=== PATIENT | male | born 1955 | race Caucasian/White ===

== ENCOUNTER 2025-04-08 12:55 | Inpatient (IN) | payer MEDICARE, MEDICAID ==
[~2025-04-08] VITALS: Ht 170.2 cm; Wt 70.0 kg
--- NOTE | 2025-04-08 14:16 | ED.PDOC ---
General HPI Comments A 69 YEAR OLD FEMALE PRESENTS TO THE ED WITH COMPLAINT OF UTI SYMPTOMS. PATIENT STATES HE HAS BEEN EXPERIENCING HEMATURIA, URINARY FREQUENCY, AND URINARY URGENCY WITH A SMALL URINE OUTPUT FOR THE PAST 1 WEEK. PATIENT DENIES FLANK PAIN, FEVER, CHILLS, SHORTNESS OF BREATH, CHEST PAIN, ABDOMINAL PAIN, NAUSEA, VOMITING, HEADACHE, OR OTHER COMPLAINTS. NO OTHER SYMPTOMS OR MODIFYING FACTORS AT THIS TIME. PATIENT IS ALERT, ORIENTED X 4, AND HAS STEADY GAIT. Chief Complaint: Urinary Time Seen by MD: 13:29 Reviewed notes: Nurses Notes, Medications, Allergies Allergies: Coded Allergies: NO KNOWN ALLERGIES (Unverified , 04/08/25) Information Source: Patient Mode of Arrival: Wheelchair Severity: Moderate Inability to void: None Timing: Days Duration: Since onset, Days Prehospital treatment: None Onset: Spontaneous Symptoms: Frequency, Urgency, Hematuria History of: None Location: None Penile discharge: None Modifying factors: None associated signs and symptoms: Frequency, Urgency, Hematuria Past Medical History PAST MEDICAL HISTORY: CVA, Dementia Surgical History: Denies all surgeries Family History Family History: Reviewed,noncontributory to illness Social History Smoker: Non-Smoker Alcohol: Denies ETOH Use Drugs: Denies Drug Use Lives In: Home Constitutional: denies: chills, diaphoresis, fatigue, fever, malaise, sweats, weakness, others EENTM: denies: blurred vision, double vision, ear bleeding, ear discharge, ear drainage, ear pain, ear ringing, eye pain, eye redness, hearing loss, mouth pain, mouth swelling, nasal discharge, nose bleeding, nose congestion, nose pain, photophobia, tearing, throat pain, throat swelling, voice changes, others Respiratory: denies: cough, hemoptysis, orthopnea, SOB at rest, shortness of breath, SOB with excertion, stridor, wheezing, others Cardiovascular: denies: chest pain, dizzy spells, diaphoresis, Dyspnea on exertion, edema, irregular heart beat, left arm pain, lightheadedness, palpitations, PND, syncope, others Gastrointestinal: denies: abdomen distended, abdominal pain, blood streaked bowels, constipated, diarrhea, dysphagia, difficulty swallowing, hematemesis, melena, nausea, poor appetite, poor fluid intake, rectal bleeding, rectal pain, vomiting, others Genitourinary: reports: frequency, hematuria, urgency; denies: burning, dysuria, flank pain, incontinence, penile discharge, penile sore, pain, testicle pain, testicle swelling, others Neurological: denies: dizziness, fainting, headache, left sided numbness, left sided weakness, numbness, paresthesia, pre-existing deficit, right sided numbness, right sided weakness, seizure, speech problems, tingling, tremors, weakness, others Musculoskeletal: denies: back pain, gout, joint pain, joint swelling, muscle pain, muscle stiffness, neck pain, others Integumetry: denies: bruises, change in color, change in hair/nails, dryness, laceration, lesions, lumps, rash, wounds, others Allergic/Immunocompromised: denies: Difficulty Healing, Frequent Infections, Hives, Itching, others Hematologic/Lymphatic: denies: anemia, blood clots, easy bleeding, easy bruising, swollen glands, others Endocrine: denies: excessive hunger, excessive sweating, excessive thirst, excessive urination, flushing, intolerance to cold, intolerance to heat, unexplained weight gain, unexplained weight loss, others Psychiatric: denies: anxiety, bipolar disorder, depression, hopeless, panic disorder, schizophrenia, sleepless, suicidal, others All Other Systems: Reviewed and Negative Physical Exam General Appearance: No Apparent Distress, Normal HEENT: Normal ENT Inspection, PERRL/EOMI, Pharynx Normal, TMs Normal Neck: Full Range of Motion, Non-Tender, Normal, Normal Inspection Respiratory: Chest Non-Tender, Lungs Clear, No Accessory Muscle Use, No Respiratory Distress, Normal Breath Sounds Cardiovascular: No Edema, No JVD, No Murmur, No Gallop, Normal Peripheral Pulses, Regular Rate/Rhythm Breast Exam: Deferred Gastrointestinal: No Organomegaly, Non Tender, No Pulsatile Mass, Normal Bowel Sounds, Soft Genitalia: Deferred Pelvic: Deferred Rectal: Deferred Extremities: No calf tenderness, Normal capillary refill, Normal inspection, Normal range of motion, Non-tender, No pedal edema, Other (LEFT SIDE WEAKNESS DUE TO OLD CVA ) Musculoskeletal : Apperance: Normal Neurologic: Alert, tree planter II-XII nml as Tested, No Motor Deficits, Normal Affect, Normal Mood, No Sensory Deficits Cerebellar Function: Normal Reflexes: Normal Skin: Dry, Normal Color, Warm Peripheral Pulses: 2+ carotid (R), 2+ carotid (L), 2+ dorsalis pedis (R), 2+ dorsalis pedis (L) Lymphatic: No Adenopathy Was a procedure done? Was a procedure done?: No Differential Diagnosis Kidney stone (Female): N/A Kidney stone (Male): N/A Penile/Scrotal: N/A Urinary Problem (Male): Urinary Retention, Urolithiasis, UTI Urinary Problem (Female): N/A X-Ray, Labs, Meds, VS Vital Signs Date Time Temp Pulse Resp B/P (MAP) Pulse Ox O2 Delivery O2 Flow Rate FiO2 04/08/25 12:58 98.0 88 18 119/72 92 98.0 Lab Test 04/08/25 14:46 04/08/25 14:05 Range/Units White Blood Count 8.6 4.4-10.8 10^3/uL Red Blood Count 4.16 L 4.5-5.90 10^6/uL Hemoglobin 12.7 L 13.5-17.5 g/dL Hematocrit 37.2 L 41.0-53.0 % Mean Corpuscular Volume 89.4 80.0-100.0 fL Mean Corpuscular Hemoglobin 30.6 28.0-32.0 pg Mean Corpuscular Hemoglobin Concent 34.2 32.0-36.0 g/dL Red Cell Distribution Width 12.2 11.8-14.3 % Platelet Count 468 H 140-450 10^3/uL Mean Platelet Volume 6.5 L 6.9-10.8 fL Neutrophils (%) (Auto) 75.2 37.0-80.0 % Lymphocytes (%) (Auto) 13.6 10.0-50.0 % Monocytes (%) (Auto) 8.1 0.0-12.0 % Eosinophils (%) (Auto) 2.7 0.0-7.0 % Basophils (%) (Auto) 0.4 0.0-2.0 % Neutrophils # (Auto) 6.5 1.6-8.6 10 ^3/uL Lymphocytes # (Auto) 1.2 0.4-5.4 10 ^3/uL Monocytes # (Auto) 0.7 0-1.3 10 ^3/uL Eosinophils # (Auto) 0.2 0-0.8 10 ^3/uL Basophils # (Auto) 0 0-0.2 10 ^3/uL Nucleated Red Blood Cells 0.1 % Sodium Level 143 136-145 mmol/L Potassium Level 4.0 3.5-5.1 mmol/L Chloride Level 104 98-107 mmol/L Carbon Dioxide Level 30 20-31 mmol/L Anion Gap 9 5-15 Blood Urea Nitrogen 16 9-23 mg/dL Creatinine 1.05 0.700-1.30 mg/dL Glomerular Filtration Rate Calc 76 >90 mL/min BUN/Creatinine Ratio 15.2 10.0-20.0 Serum Glucose 79 74-106 mg/dL Calcium Level 10.1 8.7-10.4 mg/dL Urine Color Light-yellow Yellow Urine Clarity Clear Clear Urine pH 6.0 5.0-9.0 Urine Specific [place] 1.018 1.001-1.035 Urine Protein Negative Negative Urine Ketones Negative Negative Urine Blood Negative Negative /uL Urine Nitrite Negative Negative Urine Bilirubin Negative Negative Urine Urobilinogen Normal Negative mg/dL Urine Leukocyte Esterase Trace Negative /uL Urine RBC 1 0 - 3 /hpf Urine Microscopic WBC 10 H 0-3 /HPF Urine Squamous Epithelial Cells Few <5 /hpf Urine Bacteria None seen None Seen /hpf Urine Glucose Normal Normal mg/dL Current Medications Medications (Trade) Dose Ordered Sig/Nisha Route Start Time Stop Time Status Last Admin Sodium Chloride 1,000 ml @ 1,000 mls/hr Q1H ONCE IV 04/08/25 15:15 04/08/25 16:14 04/08/25 15:30 ORDERING PHYSICIAN: JOHNATHAN TORRES PROCEDURE(s): ABPL - CT AB PEL WO CON-NO ORAL OR IV REASON: blood in the urine ORDER NUMBER(s): [id number], ACCESSION NUMBER(s): [id number] CT abdomen and pelvis without contrast INDICATION: blood in the urine TECHNIQUE: Serial axial images were performed through the abdomen and pelvis and then reformatted in the sagittal and coronal plane. All CT scans at this medical facility are performed using dose modulation techniques as appropriate to a performed exam including the following: Automated exposure control was utilized; adjustment of the MA and/or KvP according to patient size; and use of iterative reconstruction technique. FINDINGS: Liver and spleen are normal in size without focal mass. Multiple bilateral renal stones. Largest stone in the right kidney is roughly 1-2 mm in the left kidney roughly 5 mm. There is no hydronephrosis. There are multiple bilateral renal cysts with the largest on the left measuring 4.6 and 4.4 cm No masses or enlargement of the adrenal glands or pancreas. No biliary dilatation. No gallstones. No distention of bowel loops to suggest mechanical obstruction of bowel. The appendix is normal in appearance. No free fluid. Within the pelvis, bladder is smooth walled without stones. No abnormal masses or fluid collections. IMPRESSION: 1. Bilateral nonobstructive renal calculi. 2. Bilateral renal cysts larger on the left than the right. Computed Tomographic Radiation Dosimetry Report: Total CTDI vol = 13.11mGy Total DLP = 612.18mGy-cm Low dose protocols were performed. ATED BY: SIMONE ANDRADE MD DICTATED DATE/TIME: 04/08/251448 SIGNED BY: SIMONE ANDRADE MD SIGNED DATE/TIME: 04/08/251448 CC: X-Ray, Labs, Meds, VS Comment EXTERNAL MEDICAL RECORDS REVIEWED: [NONE] INDEPENDENT HISTORIANS: [NONE] SOCIAL DETERMINANTS OF HEALTH: [NONE] LABS ORDERED: CBC, BMP, UA REVIEWED AND INTERPRETED RESULTS: NORMAL IMAGING ORDERED: NONE TREATMENTS ORDERED: NS 1 L IV, FLOMAX 0.8 MG P.O. PROCEDURES PERFORMED: NONE CRITICAL CARE TIME: NONE I HAVE DISCUSSED THE PATIENT WITH THE ATTENDING PHYSICIAN DR. MCKENZIE AND HE AGREES WITH THE PATIENT'S PLAN OF CARE. UPON MY PHYSICAL EXAMINATION, THE PATIENT WAS WELL IN APPEARANCE AND HAD NO SIGNS OF RESPIRATORY DISTRESS AT THIS TIME. A CT SCAN WAS ORDERED FOR THE PATIENT WHICH REVEALED BILATERAL NONOBSTRUCTING RENAL STONES WITH THE LARGEST BEING ON THE LEFT SIDE MEASURING 5 MM. DUE TO THE PATIENT'S AGE AND CT SCAN RESULTS, I HAVE DETERMINED THE PATIENT NEEDS TO BE ADMITTED FOR FURTHER TREATMENT AND EVALUATION. THE ON-CALL HOSPITALIST WILL BE CONTACTED FOR ADMISSION OF THIS PATIENT. Images Reviewed?: Images reviewed and evaluated by me Time of 1ST Reevaluation: 15:37 Reevaluation 1ST: Unchanged Patient Education/Counseling: Diagnosis, Treatment Family Education/Counseling: Diagnosis, Treatment SEPSIS Sepsis Screen Date sepsis recognized/suspect: Apr 08, 2025 Time Sepsis recognized/suspect: 1300 Recent Procedure: No On Antibiotic Therapy: No Respiratory Rate >20: No Heart Rate >90: No Temp<36 C (96.8 F) or >38.3 C: No SBP <90 or MAP <65 mmHG: No New Acute Mental Status Change: No Is the patient on CPAP, BIPAP,: No Physician Orders Ct Ab Pel Wo Con-No Oral Or Iv (04/08/25 14:21) Heplock Iv (04/08/25 ) Sodium Chloride 0.9% (04/08/25 15:15) Vital Signs Date Time Temp Pulse Resp B/P (MAP) Pulse Ox O2 Delivery O2 Flow Rate FiO2 04/08/25 12:58 98.0 88 18 119/72 92 98.0 Laboratory Tests Test 04/08/25 14:46 White Blood Count 8.6 10^3/uL (4.4-10.8) Medications Medications Dose Ordered Sig/Nisha Route Start Time Stop Time Status Last Admin Dose Admin Sodium Chloride 1,000 ml @ 1,000 mls/hr Q1H ONCE IV 04/08/25 15:15 04/08/25 16:14 04/08/25 15:30 Departure 1 Departure Time of Disposition: 15:37 Impression: Primary Impression: Hematuria Qualified Codes: R31.9 - Hematuria, unspecified Additional Impression: Bilateral renal stones Disposition: ADMITTED INPATIENT Condition: Serious Critical Care Note Critical Care Time?: No Stability Stability form required: Yes Unstable for transfer: Requires medication, ED Physician Assesment, Possible rapid decline I personally scribed for JOHNATHAN TORRES ([email or web address]) on 04/08/25 at 14:15. Electronically submitted by Jonny Land ([employer]). I personally scribed for JOHNATHAN TORRES ([email or web address]) on 04/08/25 at 14:56. Electronically submitted by Jonny Land ([employer]). I personally scribed for JOHNATHAN TORRES ([email or web address]) on 04/08/25 at 15:31. Electronically submitted by Jonny Land ([employer]). JOHNATHAN TORRES Apr 08, 2025 14:15
--- NOTE | 2025-04-08 14:51 | DVH ---
CT abdomen and pelvis without contrast INDICATION: blood in the urine TECHNIQUE: Serial axial images were performed through the abdomen and pelvis and then reformatted in the sagittal and coronal plane. All CT scans at this medical facility are performed using dose modulation techniques as appropriate to a performed exam including the following: Automated exposure control was utilized; adjustment of the MA and/or KvP according to patient size; and use of iterative reconstruction technique. FINDINGS: Liver and spleen are normal in size without focal mass. Multiple bilateral renal stones. Largest stone in the right kidney is roughly 1-2 mm in the left kidney roughly 5 mm. There is no hydronephrosis. There are multiple bilateral renal cysts with the largest on the left measuring 4.6 and 4.4 cm No masses or enlargement of the adrenal glands or pancreas. No biliary dilatation. No gallstones. No distention of bowel loops to suggest mechanical obstruction of bowel. The appendix is normal in appearance. No free fluid. Within the pelvis, bladder is smooth walled without stones. No abnormal masses or fluid collections. IMPRESSION: 1. Bilateral nonobstructive renal calculi. 2. Bilateral renal cysts larger on the left than the right. Computed Tomographic Radiation Dosimetry Report: Total CTDI vol = 13.11mGy Total DLP = 612.18mGy-cm Low dose protocols were performed.
[2025-04-08 14:55] LABS: Urine Protein, UAD Negative (Negative)
[2025-04-08 15:09] LABS: Hematocrit 37.2 % (41.0-53.0); Hemoglobin 12.7 g/dL (13.5-17.5); Mean Corpuscular Hemoglobin 30.6 pg (28.0-32.0); Mean Corpuscular Volume 89.4 fL (80.0-100.0); Nucleated Red Blood Cells % 0.1 %
[2025-04-08 15:16] LABS: Chloride 104 mmol/L (98-107); Potassium 4.0 mmol/L (3.5-5.1); Sodium 143 mmol/L (136-145)
[2025-04-08 15:17] LABS: Anion Gap 9 (5-15); Calcium 10.1 mg/dL (8.7-10.4); Carbon Dioxide 30 mmol/L (20-31)
[2025-04-08 15:22] LABS: BUN/Creatinine Ratio 15.2 (10.0-20.0); Blood Urea Nitrogen 16 mg/dL (9-23); Glucose 79 mg/dL (74-106)
[2025-04-08] MEDS: SODIUM CHLORIDE 0.9% 1,000 ML IV ONE (15:30)
[2025-04-08] MEDS: TAMSULOSIN HYDROCHLORIDE 0.4 MG CAP PO ONE (15:35)
[2025-04-08] MEDS ORDERED: LISI30TA8 PO (16:57)
[2025-04-08] MEDS ORDERED: CLOP75TA70 PO (16:58)
[2025-04-08] MEDS ORDERED: ATOR-47 PO (16:58)
[2025-04-08] MEDS ORDERED: ACETAMINOPHEN 325 MG TAB PO PRN (18:30)
[2025-04-08] MEDS ORDERED: ONDANSETRON HCL 4 MG/2 ML VIAL IV PRN (18:30)
[2025-04-08] MEDS ORDERED: MORPHINE SULFATE INJ 2 MG/ml SYRG IV PRN (18:30)
[2025-04-08] MEDS ORDERED: NITROGLYCERIN 0.4 MG SL TAB SL PRN (18:30)
[2025-04-08] MEDS: SODIUM CHLORIDE 0.9% 1,000 ML IV SCH (18:30)
--- NOTE | 2025-04-08 18:56 | DVHHPRES ---
History of Present Illness Resident Creating Document: CHERYYORDYNeftalyCYNDEE RESIDENT History of Present Illness Mr. 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 According to his caregiver, the patient has been experiencing blood clots in his urine and blood coming out with urination when using the toilet. The caregiver has noticed the patient soiling his pants when going to the restroom to urinate. The patient appears to have associated back pain, as evidenced by bending down and walking in a hunched position when trying to ambulate. This is the first time these urinary symptoms have occurred. The patient denies flu-like symptoms, difficulty breathing, shortness of breath, leg swelling, diabetes, kidney issues, heart attacks, heart failure, or known prostate problems. Medical History - Dementia following stroke in 2016 - Two [id number] strokes in 2016 with resulting left-sided paralysis - Asthma - Hypertension Surgical history- denies Family history- nonsignificant Social history- lives at home. Denies smoking, alcohol and other drug abuse Home medications- clopidogrel, Lipitor, lisinopril Allergies- No known allergies Review of Systems General: Negative for flu-like symptoms. :Right lank pain Cardiovascular: Negative for leg swelling. Respiratory: Negative for difficulty breathing, shortness of breath. Musculoskeletal: Positive for back pain. Review of Systems Allergies: Coded Allergies: NO KNOWN ALLERGIES (Unverified , 04/08/25) Medications Current Medications Medications Dose Ordered Sig/Nisha Route Start Time Stop Time Status Last Admin Dose Admin Sodium Chloride 10 ml Q8HR IV 04/08/25 22:00 Sodium Chloride 1,000 ml @ 60 mls/hr [id number] IV 04/08/25 18:30 Ondansetron HCl 4 mg Q4HP PRN IV 04/08/25 18:30 Acetaminophen 650 mg Q6HP PRN PO 04/08/25 18:30 Nitroglycerin 0.4 mg Q5MINP PRN SL 04/08/25 18:30 Morphine Sulfate 2 mg Q30M PRN IV 04/08/25 18:30 Ceftriaxone Sodium 50 ml @ 100 mls/hr DAILY@09 IV 04/09/25 09:00 Clopidogrel Bisulfate 75 mg DAILY PO 04/09/25 10:00 Atorvastatin Calcium 80 mg HS PO 04/08/25 22:00 Lisinopril 30 mg DAILY PO 04/09/25 10:00 Exam Vital Signs Vital Signs Date Time Temp Pulse Resp B/P (MAP) Pulse Ox O2 Delivery O2 Flow Rate FiO2 04/08/25 16:58 98.6 91 17 102/66 (78) 96 98.6 04/08/25 15:41 Room Air Exam Pt is lying on bed General Appearance: Alert, Oriented X3, Cooperative, Not in acute distress HEENT: Atraumatic, Mucous membranes moist/pink Respiratory: Clear to auscultation, Normal air movement, No added sounds Cardiovascular: Regular rate, Normal S1, Normal S2, No murmurs Abdominal: Active bowel sounds, Soft, no distention, right flank tenderness Extremities: No edema, Normal pulses, No tenderness/swelling Skin: No Significant rash, except past surgical scars Neuro: decreased strength on the left side of the body due to the stool CVA Psych/Mental Status: Mental status NL, Mood NL 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 as archery equipment hay sorter during examination Labs/Xrays Labs Test 04/08/25 14:46 04/08/25 14:05 Range/Units White Blood Count 8.6 4.4-10.8 10^3/uL Red Blood Count 4.16 L 4.5-5.90 10^6/uL Hemoglobin 12.7 L 13.5-17.5 g/dL Hematocrit 37.2 L 41.0-53.0 % Mean Corpuscular Volume 89.4 80.0-100.0 fL Mean Corpuscular Hemoglobin 30.6 28.0-32.0 pg Mean Corpuscular Hemoglobin Concent 34.2 32.0-36.0 g/dL Red Cell Distribution Width 12.2 11.8-14.3 % Platelet Count 468 H 140-450 10^3/uL Mean Platelet Volume 6.5 L 6.9-10.8 fL Neutrophils (%) (Auto) 75.2 37.0-80.0 % Lymphocytes (%) (Auto) 13.6 10.0-50.0 % Monocytes (%) (Auto) 8.1 0.0-12.0 % Eosinophils (%) (Auto) 2.7 0.0-7.0 % Basophils (%) (Auto) 0.4 0.0-2.0 % Neutrophils # (Auto) 6.5 1.6-8.6 10 ^3/uL Lymphocytes # (Auto) 1.2 0.4-5.4 10 ^3/uL Monocytes # (Auto) 0.7 0-1.3 10 ^3/uL Eosinophils # (Auto) 0.2 0-0.8 10 ^3/uL Basophils # (Auto) 0 0-0.2 10 ^3/uL Nucleated Red Blood Cells 0.1 % Sodium Level 143 136-145 mmol/L Potassium Level 4.0 3.5-5.1 mmol/L Chloride Level 104 98-107 mmol/L Carbon Dioxide Level 30 20-31 mmol/L Anion Gap 9 5-15 Blood Urea Nitrogen 16 9-23 mg/dL Creatinine 1.05 0.700-1.30 mg/dL Glomerular Filtration Rate Calc 76 >90 mL/min BUN/Creatinine Ratio 15.2 10.0-20.0 Serum Glucose 79 74-106 mg/dL Calcium Level 10.1 8.7-10.4 mg/dL Urine Color Light-yellow Yellow Urine Clarity Clear Clear Urine pH 6.0 5.0-9.0 Urine Specific [employer] 1.018 1.001-1.035 Urine Protein Negative Negative Urine Ketones Negative Negative Urine Blood Negative Negative /uL Urine Nitrite Negative Negative Urine Bilirubin Negative Negative Urine Urobilinogen Normal Negative mg/dL Urine Leukocyte Esterase Trace Negative /uL Urine RBC 1 0 - 3 /hpf Urine Microscopic WBC 10 H 0-3 /HPF Urine Squamous Epithelial Cells Few <5 /hpf Urine Bacteria None seen None Seen /hpf Urine Glucose Normal Normal mg/dL SEPSIS Sepsis Screen Date sepsis recognized/suspect: Apr 08, 2025 Time Sepsis recognized/suspect: 1657 Recent Procedure: No On Antibiotic Therapy: No Respiratory Rate >20: No Heart Rate >90: Yes Temp<36 C (96.8 F) or >38.3 C: No SBP <90 or MAP <65 mmHG: No New Acute Mental Status Change: No Is the patient on CPAP, BIPAP,: No Physician Orders Ct Ab Pel Wo Con-No Oral Or Iv (04/08/25 14:21) Heplock Iv (04/08/25 ) Admit (04/08/25 18:30) Allergies (04/08/25 18:30) Code Status (04/08/25 18:30) Sodium Chloride Lock (Saline Lock Ns) (04/08/25 22:00) Sodium Chloride 0.9% (04/08/25 18:30) Ondansetron Hcl (Zofran) (04/08/25 18:30) Complete Blood Count (04/09/25 04:00) Comprehensive Metabolic Panel (04/09/25 04:00) Cardiac Diet-2gna,Lofat,Lochol (04/08/25 Dinner) Condition: Fair (04/08/25 18:30) Acetaminophen Tablet (Tylenol Tablet) (04/08/25 18:30) Sequential Compression Device (04/08/25 ) Nitroglycerin Sublingual (Ntrostat Subli (04/08/25 18:30) Morphine Sulfate Injection (04/08/25 18:30) Oxygen By Nasal Cannula (04/08/25 18:30) Stat Ekg For Chest Pain (04/08/25 18:30) Notify Md Of Changes From Base (04/08/25 18:30) Establishment Guide For 24 Hours (04/08/25 18:30) Emergency Dysrhythmia Protocol (04/08/25 18:30) Rhythm Strips Once Every Shift (04/08/25 18:30) Urine Bacterial Culture (04/08/25 18:30) B-Type Natriuretic Peptide (04/08/25 18:30) Magnesium (04/08/25 18:30) PTPTT (04/08/25 18:30) Ceftriaxone 1gm/50ml (Rocephin) (04/08/25 18:30) Ceftriaxone 1gm/50ml (Rocephin) (04/09/25 09:00) Clopidogrel Bisulfate (Plavix) (04/09/25 10:00) Lisinopril Tablet (Zestril Tablet) (04/09/25 10:00) Atorvastatin (Lipitor) (04/08/25 22:00) Vital Signs Date Time Temp Pulse Resp B/P (MAP) Pulse Ox O2 Delivery O2 Flow Rate FiO2 04/08/25 16:58 98.6 91 17 102/66 (78) 96 98.6 04/08/25 15:41 90 19 96 Room Air 04/08/25 15:41 98.9 90 17 136/83 (100) 96 98.9 04/08/25 12:58 98.0 88 18 119/72 92 98.0 Laboratory Tests Test 04/08/25 14:46 White Blood Count 8.6 10^3/uL (4.4-10.8) Medications Medications Dose Ordered Sig/Nisha Route Start Time Stop Time Status Last Admin Dose Admin Sodium Chloride 1,000 ml @ 1,000 mls/hr Q1H ONCE IV 04/08/25 15:15 04/08/25 16:14 DC 04/08/25 15:30 1,000 MLS/HR Tamsulosin HCl 0.8 mg ONCE ONCE PO 04/08/25 15:15 04/08/25 15:16 DC 04/08/25 15:35 0.8 MG Assessment/Plan Assessment/Plan Mr. Morales is an elderly male with a history of stroke with left-sided paralysis, dementia, and asthma presenting with 2 weeks of urinary symptoms Possible Acute complicated UTI Hematuria likely due to below Bilateral renal calculi. Plan: - Start Rocephin - urine cultures - CT abdominal pelvis showed b/l nonobstructive renal calculi and renal cysts - supportive management - IV fluids - PSA - Tamsulosin HX of CVA Vascular dementia HTN - resumed Lipitor and clopidogrel - delirium precautions Hx of Asthma - consider med-nebs if needed GI PPX: Protonix VTE ppx: Not indicated due to hematuria Diet: cardiac Goals of care addressed with the patient for more than 27 minutes: Full code status Case discussed with Dr. Hanson, patient and nurse Plan discussed with: Patient, Spouse, Other (rn) My Orders Orders - RAHEL GOTTLIEB RESIDENT Procedure Category Date Status Time Admit ADMIT 04/08/25 Transmitted 18:30 Allergies ANNA 04/08/25 In Process 18:30 Code Status CODE 04/08/25 Transmitted 18:30 Sodium Chloride Lock PHA 04/08/25 In Process (Saline Lock Ns) 22:00 Sodium Chloride 0.9% PHA 04/08/25 In Process 18:30 Ondansetron Hcl PHA 04/08/25 In Process (Zofran) 18:30 Complete Blood Count LAB 04/09/25 Verified 04:00 Comprehensive LAB 04/09/25 Verified Metabolic Panel 04:00 Cardiac DIET 04/08/25 Transmitted Diet-2gna,Lofat,Lochol Dinner Condition: Fair ANNA 04/08/25 In Process 18:30 Acetaminophen Tablet PHA 04/08/25 In Process (Tylenol Tablet) 18:30 Sequential ANNA 04/08/25 In Process Compression Device Nitroglycerin PHA 04/08/25 In Process Sublingual (Ntrostat 18:30 Morphine Sulfate PHA 04/08/25 In Process Injection 18:30 Oxygen By Nasal RT 04/08/25 Transmitted Cannula 18:30 Stat Ekg For Chest ANNA 04/08/25 In Process Pain 18:30 Notify Of Changes ANNA 04/08/25 In Process From Base 18:30 Establishment Guide For ANNA 04/08/25 In Process 24 Hours 18:30 Emergency Dysrhythmia ANNA 04/08/25 In Process Protocol 18:30 Rhythm Strips Once ANNA 04/08/25 In Process Every Shift 18:30 Urine Bacterial [place] 04/08/25 In Process Culture 18:30 B-Type Natriuretic LAB 04/08/25 In Process Peptide 18:30 Magnesium LAB 04/08/25 In Process 18:30 PTPTT LAB 04/08/25 In Process 18:30 Ceftriaxone 1gm/50ml PHA 04/08/25 In Process (Rocephin) 18:30 Ceftriaxone 1gm/50ml PHA 04/09/25 In Process (Rocephin) 09:00 Clopidogrel Bisulfate PHA 04/09/25 In Process (Plavix) 10:00 Lisinopril Tablet PHA 04/09/25 In Process (Zestril Tablet) 10:00 Atorvastatin (Lipitor) PHA 04/08/25 In Process 22:00 Visit Coding STANDARD RES Billing Provider: DENY HANSON MD Date of Service if different f: Apr 08, 2025 Common Visit Codes: 26877-ZTKJSXV INP/OBS CARE (HIGH) Secondary Visit Codes: [id number]-[id number] CARE PLAN 30 MINUTES RAHEL GOTTLIEB RESIDENT Apr 08, 2025 18:56
[2025-04-08 19:16] LABS: INR 0.99 (0.9-1.15); Partial Thromboplastin Time 28.5 SEC (24.5-34.5); Prothrombin Time 10.5 sec (9.3-11.8)
[2025-04-08 19:42] VITALS: BP 138/69; PULSE 78; PULSE 95; RESP 18; TEMP 98.5; O2SAT 98
[2025-04-08] MEDS: ATORVASTATIN 20 MG TAB PO SCH (21:06)
[2025-04-08] MEDS: SODIUM CHLOR 0.9% PF (SALINE LOCK) 10ML VIAL/SYR IV SCH (21:06)
[2025-04-08 21:19] VITALS: BP 149/73; PULSE 96; RESP 18; TEMP 98.5; O2SAT 84
[2025-04-09] VITALS (9 sets, daily range): BP systolic 124–170; BP diastolic 58–96; PULSE 72–90; RESP 16–18; TEMP 97.7–98.9; O2SAT 95–97
[2025-04-09 03:27] LABS: Hematocrit 30.1 % (41.0-53.0); Hemoglobin 10.2 g/dL (13.5-17.5); Mean Corpuscular Hemoglobin 30.0 pg (28.0-32.0); Mean Corpuscular Volume 88.8 fL (80.0-100.0); Nucleated Red Blood Cells % 0.0 %
[2025-04-09 03:44] LABS: Alanine Aminotransferase 16 U/L (7-40); Albumin 3.9 g/dL (3.2-4.8); Alkaline Phosphatase 73 U/L (46-116); Anion Gap 8 (5-15); BUN/Creatinine Ratio 15.2 (10.0-20.0); Blood Urea Nitrogen 15 mg/dL (9-23); Calcium 9.2 mg/dL (8.7-10.4); Carbon Dioxide 27 mmol/L (20-31); Chloride 107 mmol/L (98-107); Glucose 96 mg/dL (74-106); Potassium 3.9 mmol/L (3.5-5.1); Sodium 142 mmol/L (136-145); Total Protein 7.0 g/dL (5.7-8.2)
[2025-04-09 03:45] LABS: Bilirubin, Total 0.5 mg/dL (0.2-1.0)
[2025-04-09] MEDS: LISINOPRIL 20 MG TAB PO SCH (09:39)
[2025-04-09] MEDS: CLOPIDOGREL BISULFATE 75 MG TAB PO SCH (09:39)
--- NOTE | 2025-04-09 14:49 | DVHPN2 ---
Reviewed: H&P Changes from previous H/P or p: No Changes General: Per HPI Objective Vitals Vital Signs Date Time Temp Pulse Resp B/P (MAP) Pulse Ox O2 Delivery O2 Flow Rate FiO2 04/09/25 13:00 98.0 77 16 170/96 (120) 95 98.0 04/09/25 08:00 Room Air* 0 21 Intake/Output Intake and Output 04/09/25 07:00 Intake Total 450 ml Balance 450 ml Intake Oral 400 ml IV Total 50 ml # Voids 1 Exam General Appearance: Alert, Oriented X3, Cooperative, Not in acute distress HEENT: Atraumatic, Mucous membranes moist/pink Respiratory: Clear to auscultation, Normal air movement, No added sounds Cardiovascular: Regular rate, Normal S1, Normal S2, No murmurs Abdominal: Active bowel sounds, Soft, no distention, right flank tenderness Extremities: No edema, Normal pulses, No tenderness/swelling Skin: No Significant rash, except past surgical scars Neuro: decreased strength on the left side of the body due to the stool CVA Psych/Mental Status: Mental status NL, Mood NL 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 baseball coach during examination Medications Current Medications Medications Dose Ordered Sig/Nisha Route Start Time Stop Time Status Last Admin Dose Admin Sodium Chloride 10 ml Q8HR IV 04/08/25 22:00 04/09/25 06:00 10 ML Sodium Chloride 1,000 ml @ 60 mls/hr [id number] IV 04/08/25 18:30 04/08/25 18:30 60 MLS/HR Ondansetron HCl 4 mg Q4HP PRN IV 04/08/25 18:30 Acetaminophen 650 mg Q6HP PRN PO 04/08/25 18:30 Ceftriaxone Sodium 50 ml @ 100 mls/hr DAILY@09 IV 04/09/25 09:00 04/09/25 09:00 100 MLS/HR Clopidogrel Bisulfate 75 mg DAILY PO 04/09/25 10:00 04/09/25 09:39 75 MG Atorvastatin Calcium 80 mg HS PO 04/08/25 22:00 04/08/25 21:06 80 MG Lisinopril 30 mg DAILY PO 04/09/25 10:00 04/09/25 09:39 30 MG Tamsulosin HCl 0.4 mg QPM PO 04/09/25 18:00 Laboratory Results Laboratory Tests 04/09/25 02:55 Chemistry Test 04/09/25 02:55 Albumin 3.9 g/dL (3.2-4.8) Calcium Level 9.2 mg/dL (8.7-10.4) Total Protein 7.0 g/dL (5.7-8.2) LFT Test 04/09/25 02:55 Alanine Aminotransferase (ALT) 16 U/L (7-40) Alkaline Phosphatase 73 U/L (46-116) Aspartate Amino Transferase (AST) 23 U/L (13-40) Total Bilirubin 0.5 mg/dL (0.2-1.0) Urinalysis Test 04/08/25 14:05 Urine Color Light-yellow (Yellow) Urine Clarity Clear (Clear) Urine pH 6.0 (5.0-9.0) Urine Specific [place] 1.018 (1.001-1.035) Urine Protein Negative (Negative) Urine Ketones Negative (Negative) Urine Blood Negative /uL (Negative) Urine Nitrite Negative (Negative) Urine Bilirubin Negative (Negative) Urine Urobilinogen Normal mg/dL (Negative) Urine Leukocyte Esterase Trace /uL (Negative) Urine RBC 1 /hpf (0 - 3) Urine Microscopic WBC 10 /HPF (0-3) H Urine Squamous Epithelial Cells Few /hpf (<5) Urine Bacteria None seen /hpf (None Seen) Urine Glucose Normal mg/dL (Normal) Microbiology Microbiology Date/Time Source Procedure Growth Status 04/08/25 14:05 Voided Urine Urine Culture - Preliminary No growth Resulted Labs and/or images reviewed: Labs reviewed by me, Image(s) reviewed by me Assessment/Plan Assessment/Plan Mr. 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 According to his caregiver, the patient has been experiencing blood clots in his urine and blood coming out with urination when using the toilet. The caregiver has noticed the patient soiling his pants when going to the restroom to urinate. The patient appears to have associated back pain, as evidenced by bending down and walking in a hunched position when trying to ambulate. This is the first time these urinary symptoms have occurred. The patient denies flu-like symptoms, difficulty breathing, shortness of breath, leg swelling, diabetes, kidney issues, heart attacks, heart failure, or known prostate problems. 04/09: Patient vascular dementia, swallow himself. Here with UTI. Unclear living situation. Question for hematuria, may need to get Urology consult. We will follow up. For now continuing IV antibiotics for urine culture. Mr. Morales is an elderly male with a history of stroke with left-sided paralysis, dementia, and asthma presenting with 2 weeks of urinary symptoms Possible Acute complicated UTI Hematuria likely due to below Bilateral renal calculi. HX of CVA Vascular dementia HTN Hx of Asthma - Start Rocephin - urine cultures - CT abdominal pelvis showed b/l nonobstructive renal calculi and renal cysts - supportive management - IV fluids - PSA - Tamsulosin - resumed Lipitor and clopidogrel - delirium precautions - consider med-nebs if needed GI PPX: Protonix VTE ppx: Not indicated due to hematuria Diet: cardiac Med surge Full code Plan discussed with: Patient Date of Service: Apr 09, 2025 Billing Provider: GILL PIMENTEL MD Common Visit Codes: [id number] INP/OBS CARE(HIGH) GILL PIMENTEL MD Apr 09, 2025 14:48
[2025-04-09] MEDS: TAMSULOSIN HYDROCHLORIDE 0.4 MG CAP PO SCH (18:37)
[2025-04-10] VITALS (7 sets, daily range): BP systolic 134–162; BP diastolic 84–98; PULSE 66–78; RESP 17–18; TEMP 97.8–98.6; O2SAT 96–97
[2025-04-10 07:17] LABS: Hematocrit 32.4 % (41.0-53.0); Hemoglobin 11.2 g/dL (13.5-17.5); Mean Corpuscular Hemoglobin 30.7 pg (28.0-32.0); Mean Corpuscular Volume 89.0 fL (80.0-100.0); Nucleated Red Blood Cells % 0.0 %
[2025-04-10 07:30] LABS: Alanine Aminotransferase 32 U/L (7-40); Albumin 3.9 g/dL (3.2-4.8); Alkaline Phosphatase 80 U/L (46-116); Anion Gap 10 (5-15); BUN/Creatinine Ratio 17.3 (10.0-20.0); Bilirubin, Total 0.4 mg/dL (0.2-1.0); Blood Urea Nitrogen 17 mg/dL (9-23); Calcium 9.5 mg/dL (8.7-10.4); Carbon Dioxide 27 mmol/L (20-31); Chloride 105 mmol/L (98-107); Glucose 84 mg/dL (74-106); Potassium 4.1 mmol/L (3.5-5.1); Sodium 142 mmol/L (136-145); Total Protein 6.7 g/dL (5.7-8.2)
[2025-04-10 09:07] LABS: Prostate Specific Antigen 30.9 ng/mL (0.0-4.0)
--- NOTE | 2025-04-10 12:16 | DVHPN2 ---
Reviewed: H&P Changes from previous H/P or p: No Changes General: Per HPI Objective Vitals Vital Signs Date Time Temp Pulse Resp B/P (MAP) Pulse Ox O2 Delivery O2 Flow Rate FiO2 04/10/25 09:58 141/71 04/10/25 05:00 98.0 75 18 97 98.0 04/09/25 20:00 Room Air* 0 21 Intake/Output Intake and Output 04/10/25 07:00 Intake Total 800 ml Balance 800 ml Intake Oral 750 ml IV Total 50 ml # Voids 6 Exam General Appearance: Alert, Oriented X3, Cooperative, Not in acute distress HEENT: Atraumatic, Mucous membranes moist/pink Respiratory: Clear to auscultation, Normal air movement, No added sounds Cardiovascular: Regular rate, Normal S1, Normal S2, No murmurs Abdominal: Active bowel sounds, Soft, no distention, right flank tenderness Extremities: No edema, Normal pulses, No tenderness/swelling Skin: No Significant rash, except past surgical scars Neuro: decreased strength on the left side of the body due to the stool CVA Psych/Mental Status: Mental status NL, Mood NL 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 as caster operator during examination Medications Current Medications Medications Dose Ordered Sig/Nisha Route Start Time Stop Time Status Last Admin Dose Admin Sodium Chloride 10 ml Q8HR IV 04/08/25 22:00 04/10/25 05:41 10 ML Sodium Chloride 1,000 ml @ 60 mls/hr [id number] IV 04/08/25 18:30 04/10/25 03:54 60 MLS/HR Ondansetron HCl 4 mg Q4HP PRN IV 04/08/25 18:30 Acetaminophen 650 mg Q6HP PRN PO 04/08/25 18:30 Ceftriaxone Sodium 50 ml @ 100 mls/hr DAILY@09 IV 04/09/25 09:00 04/10/25 09:00 100 MLS/HR Clopidogrel Bisulfate 75 mg DAILY PO 04/09/25 10:00 04/10/25 09:47 75 MG Atorvastatin Calcium 80 mg HS PO 04/08/25 22:00 04/09/25 21:04 80 MG Lisinopril 30 mg DAILY PO 04/09/25 10:00 04/10/25 09:58 30 MG Tamsulosin HCl 0.4 mg QPM PO 04/09/25 18:00 04/09/25 18:37 0.4 MG Laboratory Results Laboratory Tests 04/10/25 06:30 Chemistry Test 04/10/25 06:30 Albumin 3.9 g/dL (3.2-4.8) Calcium Level 9.5 mg/dL (8.7-10.4) Total Protein 6.7 g/dL (5.7-8.2) LFT Test 04/10/25 06:30 Alanine Aminotransferase (ALT) 32 U/L (7-40) Alkaline Phosphatase 80 U/L (46-116) Aspartate Amino Transferase (AST) 38 U/L (13-40) Total Bilirubin 0.4 mg/dL (0.2-1.0) Urinalysis Test 04/08/25 14:05 Urine Color Light-yellow (Yellow) Urine Clarity Clear (Clear) Urine pH 6.0 (5.0-9.0) Urine Specific [place] 1.018 (1.001-1.035) Urine Protein Negative (Negative) Urine Ketones Negative (Negative) Urine Blood Negative /uL (Negative) Urine Nitrite Negative (Negative) Urine Bilirubin Negative (Negative) Urine Urobilinogen Normal mg/dL (Negative) Urine Leukocyte Esterase Trace /uL (Negative) Urine RBC 1 /hpf (0 - 3) Urine Microscopic WBC 10 /HPF (0-3) H Urine Squamous Epithelial Cells Few /hpf (<5) Urine Bacteria None seen /hpf (None Seen) Urine Glucose Normal mg/dL (Normal) Microbiology Microbiology Date/Time Source Procedure Growth Status 04/08/25 14:05 Voided Urine Urine Culture - Preliminary Resulted Labs and/or images reviewed: Labs reviewed by me, Image(s) reviewed by me Assessment/Plan Assessment/Plan Mr. 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 According to his caregiver, the patient has been experiencing blood clots in his urine and blood coming out with urination when using the toilet. The caregiver has noticed the patient soiling his pants when going to the restroom to urinate. The patient appears to have associated back pain, as evidenced by bending down and walking in a hunched position when trying to ambulate. This is the first time these urinary symptoms have occurred. The patient denies flu-like symptoms, difficulty breathing, shortness of breath, leg swelling, diabetes, kidney issues, heart attacks, heart failure, or known prostate problems. 04/09: Patient vascular dementia, swallow himself. Here with UTI. Unclear living situation. Question for hematuria, may need to get Urology consult. We will follow up. For now continuing IV antibiotics for urine culture. 04/10: Doing good, at his baseline A&O x1. Likely vascular dementia. One more day of IV antibiotic and need help from social to figure out disposition at discharge. Mr. Morales is an elderly male with a history of stroke with left-sided paralysis, dementia, and asthma presenting with 2 weeks of urinary symptoms Possible Acute complicated UTI Hematuria likely due to below Bilateral renal calculi. HX of CVA Vascular dementia HTN Hx of Asthma - Start Rocephin - urine cultures - CT abdominal pelvis showed b/l nonobstructive renal calculi and renal cysts - supportive management - IV fluids - PSA - Tamsulosin - resumed Lipitor and clopidogrel - delirium precautions - consider med-nebs if needed GI PPX: Protonix VTE ppx: Not indicated due to hematuria Diet: cardiac Med surge Full code Plan discussed with: Patient Date of Service: Apr 10, 2025 Billing Provider: GILL PIMENTEL MD Common Visit Codes: [id number] INP/OBS CARE(HIGH) GILL PIMENTEL MD Apr 10, 2025 12:16
[2025-04-11 01:00] VITALS: BP 142/88; PULSE 82; RESP 17; TEMP 97.5; O2SAT 97
[2025-04-11 05:00] VITALS: BP 132/74; PULSE 68; RESP 17; TEMP 98.1; O2SAT 97
[2025-04-11 09:00] VITALS: BP 125/80; PULSE 81; RESP 19; TEMP 97.8; O2SAT 95
--- NOTE | 2025-04-11 12:42 | DVHDS2 ---
Discharge Summary Date of Admission Apr 08, 2025 at 18:30 Date of Discharge: Apr 11, 2025 Labs/Diagnostic Data: Laboratory Results Test 04/10/25 06:30 04/08/25 19:09 04/08/25 14:46 04/08/25 14:05 White Blood Count 7.7 10^3/uL (4.4-10.8) Red Blood Count 3.64 10^6/uL (4.5-5.90) Hemoglobin 11.2 g/dL (13.5-17.5) Hematocrit 32.4 % (41.0-53.0) Mean Corpuscular Volume 89.0 fL (80.0-100.0) Mean Corpuscular Hemoglobin 30.7 pg (28.0-32.0) Mean Corpuscular Hemoglobin Concent 34.5 g/dL (32.0-36.0) Red Cell Distribution Width 12.2 % (11.8-14.3) Platelet Count 391 10^3/uL (140-450) Mean Platelet Volume 6.3 fL (6.9-10.8) Neutrophils (%) (Auto) 70.6 % (37.0-80.0) Lymphocytes (%) (Auto) 16.6 % (10.0-50.0) Monocytes (%) (Auto) 10.1 % (0.0-12.0) Eosinophils (%) (Auto) 2.2 % (0.0-7.0) Basophils (%) (Auto) 0.5 % (0.0-2.0) Neutrophils # (Auto) 5.4 10 ^3/uL (1.6-8.6) Lymphocytes # (Auto) 1.3 10 ^3/uL (0.4-5.4) Monocytes # (Auto) 0.8 10 ^3/uL (0-1.3) Eosinophils # (Auto) 0.2 10 ^3/uL (0-0.8) Basophils # (Auto) 0 10 ^3/uL (0-0.2) Nucleated Red Blood Cells 0.0 % Sodium Level 142 mmol/L (136-145) Potassium Level 4.1 mmol/L (3.5-5.1) Chloride Level 105 mmol/L (98-107) Carbon Dioxide Level 27 mmol/L (20-31) Anion Gap 10 (5-15) Blood Urea Nitrogen 17 mg/dL (9-23) Creatinine 0.98 mg/dL (0.700-1.30) Glomerular Filtration Rate Calc 83 mL/min (>90) BUN/Creatinine Ratio 17.3 (10.0-20.0) Serum Glucose 84 mg/dL (74-106) Calcium Level 9.5 mg/dL (8.7-10.4) Total Bilirubin 0.4 mg/dL (0.2-1.0) Aspartate Amino Transferase (AST) 38 U/L (13-40) Alanine Aminotransferase (ALT) 32 U/L (7-40) Alkaline Phosphatase 80 U/L (46-116) Total Protein 6.7 g/dL (5.7-8.2) Albumin 3.9 g/dL (3.2-4.8) Free Prostate Specific Antigen 2.54 ng/mL (N/A) Percent Free Prostate Specific Ag 8.2 % (.) Prostate Specific Antigen Total 30.9 ng/mL (0.0-4.0) Prothrombin Time 10.5 sec (9.3-11.8) Prothrombin Time INR 0.99 (0.9-1.15) Activated Partial Thromboplast Time 28.5 SEC (24.5-34.5) Magnesium Level 1.9 mg/dL (1.6-2.6) B-Type Natriuretic Peptide 14.20 pg/mL (0-100) Urine Color Light-yellow (Yellow) Urine Clarity Clear (Clear) Urine pH 6.0 (5.0-9.0) Urine Specific [place] 1.018 (1.001-1.035) Urine Protein Negative (Negative) Urine Ketones Negative (Negative) Urine Blood Negative /uL (Negative) Urine Nitrite Negative (Negative) Urine Bilirubin Negative (Negative) Urine Urobilinogen Normal mg/dL (Negative) Urine Leukocyte Esterase Trace /uL (Negative) Urine RBC 1 /hpf (0 - 3) Urine Microscopic WBC 10 /HPF (0-3) Urine Squamous Epithelial Cells Few /hpf (<5) Urine Bacteria None seen /hpf (None Seen) Urine Glucose Normal mg/dL (Normal) Other Laboratory Tests 04/10/25 06:30 Brief Hx & Hospital Course: Mr. 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 According to his caregiver, the patient has been experiencing blood clots in his urine and blood coming out with urination when using the toilet. The caregiver has noticed the patient soiling his pants when going to the restroom to urinate. The patient appears to have associated back pain, as evidenced by bending down and walking in a hunched position when trying to ambulate. This is the first time these urinary symptoms have occurred. The patient denies flu-like symptoms, difficulty breathing, shortness of breath, leg swelling, diabetes, kidney issues, heart attacks, heart failure, or known prostate problems. 04/09: Patient vascular dementia, swallow himself. Here with UTI. Unclear living situation. Question for hematuria, may need to get Urology consult. We will follow up. For now continuing IV antibiotics for urine culture. 04/10: Doing good, at his baseline A&O x1. Likely vascular dementia. One more day of IV antibiotic and need help from social to figure out disposition at discharge. 04/11: Patient doing well, at baseline A&O x1. No urinary symptoms. Vital signs stable. Patient is safe for discharge to finish oral antibiotics. See discharge plan as below. We will treat with Augmentin 875 twice daily for 5 days. - -patient discharge to SNF, no family POA found, to doctors signed for patient safe discharge to SNF as patient is unable to make decisions no decision capacity advanced vascular dementia. Diagnosis: Possible Acute complicated UTI, with hematuria Hematuria, due to above Bilateral renal calculi. HX of CVA Vascular dementia likely HTN Hx of Asthma Plan: -Discharge to SNF for acute PT rehab - -patient discharge to SNF, no family POA found, to doctors signed for patient safe discharge to SNF as patient is unable to make decisions no decision capacity advanced vascular dementia. -Complete antibiotic with Augmentin 875 mg twice daily for 5 days. -Continue other home medications -follow up with PCP to review discharge Condition at Discharge: Fair Final Diagnosis/Problems List Possible Acute complicated UTI, with hematuria Hematuria, due to above Bilateral renal calculi. HX of CVA Vascular dementia likely HTN Hx of Asthma Discharge Disposition: Assisted Facility Discharge Instruct/Medications Scheduled Atorvastatin Calcium (Atorvastatin Calcium), 1 TAB PO DAILY, (Reported) Clopidogrel Bisulfate (Clopidogrel), 1 TAB PO DAILY, (Reported) Lisinopril (Lisinopril), 1 TAB PO DAILY, (Reported) Discharge Statement: "Patient was advised to return to the ER or call 911 if any headaches, dizziness, shortness of breath, chest pain, abdominal pain, bleeding, fevers, or worsening of medical condition. Patient was counseled about treatment plan, medications, possible side effects, patientverbalized understanding. All questions were answered to the best of my ability. This discharge took greater then 30 minutes in planning, reviewing documentation, counseling the patient, and discussing with other team members." ASSESSMENT ASSESSMENT Assessment Date of Service: Apr 11, 2025 Billing Provider: GILL PIMENTEL MD Common Visit Codes: [id number] DISCH DAY >30min GILL PIMENTEL MD Apr 11, 2025 12:42
[2025-04-11 13:00] VITALS: BP 116/55; PULSE 78; RESP 20; TEMP 97.8; O2SAT 95
[2025-04-11 17:00] VITALS: BP 113/71; PULSE 77; RESP 21; TEMP 97.8; O2SAT 97
[2025-04-11 20:00] VITALS: PULSE 73; RESP 18; O2SAT 97
== END 2025-04-11 21:50 | DRG 690 ==
LOC: ER 12:55 → OVERFLOW 18:30 → WEST WING 04-09 03:51 → CENTRAL 04-09 19:50
PROVIDERS: ADMIT Student in an Organized Health Care Education/Training Program; ATTEND Student in an Organized Health Care Education/Training Program
DX: N39.0 Urinary tract infection, site not specified (principal); I69.354 Hemiplegia and hemiparesis following cerebral infarction affecting left non-dominant side; I11.0 Hypertensive heart disease with heart failure; E11.9 Type 2 diabetes mellitus without complications; F01.50 Vascular dementia, unspecified severity, without behavioral disturbance, psychotic disturbance, mood disturbance, and anxiety; J45.909 Unspecified asthma, uncomplicated; N20.0 Calculus of kidney; N28.1 Cyst of kidney, acquired; R31.0 Gross hematuria
CPT/HCPCS: 36415; 74176; 80048; 80053; 81001; 83735; 83880; 84154; 85025; 85610; 85730; 87086; G0378